=== PATIENT | female | born 1985 | race Caucasian/White ===

== ENCOUNTER → 2016-05-14 | Outpatient (CLI) | payer MEDICARE ==
[~2016-05-14] MED LIST: ASPI81CH PO; CETI10TA PO
[2016-05-14 16:45] LABS: BASO % 0.2 % (0.0-1.0); EOS # 0.1 K/mm3 (0.0-0.50); EOS % 1.4 % (0.0-3.0); LARGE UNSTAINED CELL # 0.3 K/mm3 (0.0-0.4); LARGE UNSTAINED CELL % 3.2 % (0.0-4.0); LYMPH # 2.1 K/mm3 (1.5-6.5); LYMPH % 21.4 % (24.0-44.0); MEAN CORPUSCULAR HEMOGLOBIN 23.4 pg (27.0-33.0); MEAN CORPUSCULAR HGB CONC 31.6 g/dl (32.0-36.5); MEAN CORPUSCULAR VOLUME 73.9 fl (80.0-96.0); MONO # 0.5 K/mm3 (0.0-0.8); MONO % 4.8 % (0.0-5.0); NEUTROPHILS # 6.7 K/mm3 (1.8-7.7); NEUTROPHILS % 69.1 % (36.0-66.0); PLATELET COUNT, AUTOMATED 421 k/mm3 (150-450); WHITE BLOOD COUNT 9.7 K/mm3 (4.0-10.0)
[2016-05-15 14:26] LABS: HIV SCRN NEGATIVE (NEGATIVE); HIV SCRN1 NEGATIVE (NEGATIVE)
[2016-05-15 14:27] LABS: CONTROL LINE INT CTR LINE PRESENT
[2016-05-16 11:12] LABS: HBsAg Prenatal NEGATIVE (NEGATIVE)
== END ==
LOC: M WUC 14:15
PROVIDERS: ATTEND Advanced Practice Midwife
DX: Z34.81 Encounter for supervision of other normal pregnancy, first trimester (principal)

== ENCOUNTER → 2016-05-24 | Outpatient (CLI) | payer MEDICARE ==
--- NOTE | 2016-05-25 04:36 | REP ---
Clinical: Anatomical evaluation. Comparison: None . Findings: Examination demonstrates a single live intrauterine in transverse (head to maternal right side) presentation. motion is identified by technologist. Placenta is noted anteriorly and grade zero without evidence for placenta previa or abruption. Amniotic fluid volume is normal. Cervix measures 4.5 cm in length and appears closed. No evidence for nuchal cord. Gestational age by current measurements 20 weeks 4 days with GENESIS 10/07/2016 . FHR equals 141 beats per minute. BPD 4.7 cm 20 weeks 1 day HC 18.5 cm 20 weeks 6 days AC 15.5 cm 20 weeks 4 days FL 3.3 cm 20 weeks 1 day HL 3.3 cm 21 weeks 1 day HC/AC ratio 1.19 Estimated weight 356 grams ( 42nd percentile). Anatomical assessment demonstrates normal structures including cranium, choroid plexus, cavum, cerebellum/posterior fossa, facial profile , lungs, diaphragm, stomach, cord insertion/three-vessel cord, kidneys/bladder, spine, and extremities. Impression: 1. Single live intrauterine in transverse lie. 2. Limited evaluation of the facial features and heart/ventricular outflow tracts may warrant reevaluation. Signed by Arthur Santana MD 05/25/2016 04:27 A
== END ==
LOC: M RAD 10:38
PROVIDERS: ATTEND Specialist
DX: Z36 Encounter for antenatal screening of mother (principal); Z3A.20 20 weeks gestation of pregnancy

== ENCOUNTER → 2016-07-04 | Outpatient (CLI) | payer MEDICARE ==
--- NOTE | 2016-07-05 05:38 | REP ---
Clinical: Anatomical evaluation. Comparison: 05/24/2016 . Findings: Examination demonstrates a single live intrauterine in transverse (head to the maternal right side) presentation. motion is identified by technologist. Placenta is noted anteriorly and grade zero without evidence for placenta previa or abruption. Amniotic fluid volume is normal. Cervix measures 4.8 cm in length and appears closed. No evidence for nuchal cord. Gestational age by LMP 26 weeks 3 days with GENESIS 10/07/2016 . Gestational age by current measurements 25 weeks 6 days with GENESIS 10/11/2016 . FHR equals 141 beats per minute. Estimated weight 889 grams ( 84th percentile). Anatomical assessment demonstrates normal structures including cranium, choroid plexus, cavum, cerebellum/posterior fossa, facial features, lungs, four-chamber heart/ventricular outflow tracts, diaphragm, stomach, cord insertion/three-vessel cord, kidneys/bladder, spine, and extremities. Impression: Single live intrauterine in transverse lie demonstrating appropriate interval growth. Anatomical assessment is complete and normal. Signed by Arthur Santana MD 07/05/2016 05:29 A
== END ==
LOC: M RAD 11:41
PROVIDERS: ATTEND Specialist
DX: Z36 Encounter for antenatal screening of mother (principal)

== ENCOUNTER → 2016-07-31 | Outpatient (CLI) | payer MEDICARE ==
[2016-07-31 17:18] LABS: MEAN CORPUSCULAR HEMOGLOBIN 26.3 pg (27.0-33.0); MEAN CORPUSCULAR VOLUME 82.1 fl (80.0-96.0); RED CELL DISTRIBUTION WIDTH 18.5 % (11.5-14.5); WHITE BLOOD COUNT 9.9 K/mm3 (4.0-10.0)
== END ==
LOC: M SMT 15:00
PROVIDERS: ATTEND Advanced Practice Midwife
DX: Z34.82 Encounter for supervision of other normal pregnancy, second trimester (principal)

== ENCOUNTER → 2016-08-08 | Outpatient (CLI) | payer MEDICARE ==
--- NOTE | 2016-08-08 22:02 | REP ---
Clinical: Few being . Comparison: 07/04/2016 . Findings: Examination demonstrates a single live intrauterine in transverse (head to maternal right) presentation. motion is identified by technologist. Placenta is noted anteriorly and grade I I without evidence for placenta previa or abruption. Amniotic fluid volume is normal. Cervix measures 3.9 cm in length and appears closed. Nuchal cord cannot be excluded. Gestational age by LMP 31 weeks 3 days with GENESIS 10/07/2016 . Gestational age by current measurements 30 weeks 5 days with GENESIS 10/12/2016 . FHR equals 135 beats per minute. Estimated weight 1635 grams ( 30th percentile). Amniotic fluid index equals 13.3 cm (8.7 - 24.0). Biophysical profile score equals 8/8. Umbilical cord (mid cord) SD ratio equals 1.96 (2.50 - 3.50) Umbilical cord ( insertion) SD ratio equals 1.96 (3.30 - 4.70) Impression: 1. Advanced gestation in transverse lie demonstrating appropriate interval growth. Nuchal cord cannot be excluded. 2. Estimated weight within normal range. 3. Amniotic fluid index and biophysical profile score normal. 4. SD ratio was decreased as described above. Signed by Arthur Santana MD 08/08/2016 09:53 P
== END ==
LOC: M RAD 16:48
PROVIDERS: ATTEND Advanced Practice Midwife
DX: O24.419 Gestational diabetes mellitus in pregnancy, unspecified control (principal); Z36 Encounter for antenatal screening of mother; Z3A.30 30 weeks gestation of pregnancy

== ENCOUNTER → 2016-08-22 | Outpatient (CLI) | payer MEDICARE, MEDICAID ==
--- NOTE | 2016-08-23 07:28 | REP ---
Clinical: well-being . Comparison: 08/08/2016 . Findings: Examination demonstrates a single live intrauterine in transverse (head towards maternal right) presentation. motion is identified by technologist. Placenta is noted anteriorly and grade I without evidence for placenta previa or abruption. Amniotic fluid volume is normal. Cervix measures 3.2 cm in length and appears closed. No evidence for nuchal cord. Gestational age by LMP 33 weeks 3 days with GENESIS 10/07/2016 . FHR equals 133 beats per minute. Biophysical profile score equals 8/8. Amniotic fluid index equals 14.3 cm. Umbilical cord SD ratio equals 2.73. Impression: Single live intrauterine in transverse lie. Biophysical profile score equals 8/8. Amniotic fluid index equals 14.3 cm. Signed by Arthur Santana MD 08/23/2016 07:20 A
== END ==
LOC: M RAD 16:42
PROVIDERS: ATTEND Advanced Practice Midwife
DX: O24.419 Gestational diabetes mellitus in pregnancy, unspecified control (principal)

== ENCOUNTER → 2016-08-30 | Outpatient (CLI) | payer MEDICARE ==
--- NOTE | 2016-08-31 08:17 | REP ---
Clinical: Gestational diabetes for growth evaluation . Comparison: 08/22/2016 . Findings: Examination demonstrates a single live intrauterine in cephalic presentation. motion is identified by technologist. Placenta is noted anteriorly and grade one without evidence for placenta previa or abruption. Amniotic fluid volume is normal. Cervix measures 3.6 cm in length and appears closed. No evidence for nuchal cord. Gestational age by LMP 34 weeks 4 day with GENESIS date 10/07/2016 . Gestational age by current measurements 34 weeks 0 days with GENESIS 10/11/2016 . FHR equals 139 beats per minute. BPD 8.2 cm 33 weeks 0 days HC 30.1 cm 33 weeks 3 days AC 30.0 cm 33 weeks 6 days FL 6.6 cm 34 weeks 0 days HL 6.1 cm 35 weeks 3 days HC/AC ratio 1.00 Estimated weight 2278 grams ( 33rd percentile). Amniotic fluid index equals 14.1 cm (8.0 - 24.9). Impression: Single live intrauterine in cephalic presentation demonstrating appropriate interval growth. Estimated weight and amniotic fluid index are normal. Signed by Arthur Santana MD 08/31/2016 08:07 A
== END ==
LOC: M RAD 11:51
PROVIDERS: ATTEND Advanced Practice Midwife
DX: Z36 Encounter for antenatal screening of mother (principal); Z3A.34 34 weeks gestation of pregnancy; O24.419 Gestational diabetes mellitus in pregnancy, unspecified control

== ENCOUNTER → 2016-09-06 | Outpatient (CLI) | payer MEDICARE, MEDICAID ==
[~2016-09-06] MED LIST changes: +ACET50TA PO; +ANUS2.5C2 TOP; +CITA20TA4 PO; +COLA100C5 PO; +DULO1CAP2 PO; +IRON65TA PO; +METH75TA PO; +MOM30SS PO; +NUPE1OIN2 TOP; +PRE-TAB3 PO; +PREG50CA PO; +SUMA50TA2 PO
--- NOTE | 2016-09-06 10:10 | REP ---
Clinical: well-being . Comparison: 08/30/2016 . Findings: Examination demonstrates a single live advanced intrauterine in cephalic presentation. motion is identified by technologist. Placenta is noted anteriorly and grade one without evidence for placenta previa or abruption. Amniotic fluid volume is normal. Cervix measures 3.6 cm in length and appears closed. Nuchal cord cannot be excluded. Gestational age by LMP 35 weeks 4 days with GENESIS 10/07/2016 . FHR equals 133 beats per minute. Amniotic fluid index equals 19.1 cm (7.8 - 24.9). Biophysical profile score equals 8/8. Impression: Single live advanced gestation in cephalic presentation. Biophysical profile score equals 8/8. REYNA normal. Nuchal cord cannot be excluded. Signed by Arthur Santana MD 09/06/2016 10:00 A
== END ==
LOC: M RAD 09:25
PROVIDERS: ATTEND Advanced Practice Midwife
DX: O24.419 Gestational diabetes mellitus in pregnancy, unspecified control (principal); Z3A.00 Weeks of gestation of pregnancy not specified

== ENCOUNTER 2016-09-13 13:32 | Outpatient (CLI) | payer MEDICARE ==
[~2016-09-13] VITALS: Ht 152.4 cm; Wt 146.0 kg
[~2016-09-13 13:32] MED LIST changes: -ACET50TA PO; -ANUS2.5C2 TOP; -CITA20TA4 PO; -COLA100C5 PO; -DULO1CAP2 PO; -IRON65TA PO; -METH75TA PO; -MOM30SS PO; -NUPE1OIN2 TOP; -PRE-TAB3 PO; -PREG50CA PO; -SUMA50TA2 PO
[2016-09-13 13:49] VITALS: BP 99/51
[2016-09-13] MEDS ORDERED: CITA20TA4 PO (14:03)
[2016-09-13] MEDS ORDERED: IRON65TA PO (14:03)
[2016-09-13] MEDS ORDERED: ACET50TA PO (14:03)
[2016-09-13] MEDS ORDERED: PRE-TAB3 PO (14:03)
[2016-09-13 16:22] VITALS: BP 97/49
[2016-11-16] MEDS ORDERED: METH75TA PO (08:06)
[2016-11-16] MEDS ORDERED: DULO1CAP2 PO (08:06)
[2016-11-16] MEDS ORDERED: PREG50CA PO (08:06)
[2016-11-16] MEDS ORDERED: SUMA50TA2 PO (08:06)
== END 2016-09-13 16:30 | disposition home or self-care (01) ==
LOC: M LDO 13:32
PROVIDERS: ATTEND Specialist
DX: O26.893 Other specified pregnancy related conditions, third trimester (principal); Z3A.36 36 weeks gestation of pregnancy; R10.9 Unspecified abdominal pain; Z88.8 Allergy status to other drugs, medicaments and biological substances

== ENCOUNTER → 2016-09-14 | Outpatient (CLI) | payer MEDICARE ==
[~2016-09-14] MED LIST changes: +ACET50TA PO; +ANUS2.5C2 TOP; +CITA20TA4 PO; +COLA100C5 PO; +DULO1CAP2 PO; +IRON65TA PO; +METH75TA PO; +MOM30SS PO; +NUPE1OIN2 TOP; +PRE-TAB3 PO; +PREG50CA PO; +SUMA50TA2 PO
--- NOTE | 2016-09-14 16:03 | REP ---
Obstetric ultrasound for biophysical profile: Based on the first ultrasound during this gestation the gestational age is 36 weeks 5 days with an GENESIS of 10/07/2016. The heart rate is 144 beats per minute. Subjectively the amniotic fluid volume is normal. The amniotic fluid index is 14.7 (7.6 - 24.6). biophysical profile: Breathing 2 Movement 2 Tone 2 Amniotic fluid volume 2 Total 10/16 Umbilical artery Doppler assessment: SD ratio 2.0. Resistive index 0.55. Diastolic flow velocity 23.7 cm/sec. These values are in their normal ranges. The placenta is anterior. There is no placenta previa or abruptio. The placenta demonstrates grade 2 maturity. Signed by Sarthak Tapia MD 09/14/2016 03:53 P
== END ==
LOC: M RAD 14:45
PROVIDERS: ATTEND Advanced Practice Midwife
DX: O24.419 Gestational diabetes mellitus in pregnancy, unspecified control (principal); Z3A.36 36 weeks gestation of pregnancy

== ENCOUNTER → 2016-09-19 | Outpatient (CLI) | payer MEDICARE ==
--- NOTE | 2016-09-20 04:47 | REP ---
Clinical: Gestational diabetes for well being . Comparison: 09/14/2016 . Findings: Examination demonstrates a single live intrauterine in transverse (head to maternal right) presentation. motion is identified by technologist. Placenta is noted anteriorly and grade II without evidence for placenta previa or abruption. Amniotic fluid volume is normal. Cervix appears closed. No evidence for nuchal cord. Gestational age by LMP 37 weeks 6 days with GENESIS 10/04/2016. FHR equals 126 beats per minute. BPP equals 8/8. Amniotic fluid index equals 14.9 cm (7.3 - 24.0). Umbilical cord SD ratio equals 2.08 (1.60 - 2.60). Impression: Single live intrauterine in transverse lie. Biophysical profile score equals 8/8. Amniotic fluid index normal. Signed by Arthur Santana MD 09/20/2016 04:37 A
== END ==
LOC: M RAD 16:36
PROVIDERS: ATTEND Advanced Practice Midwife
DX: O24.419 Gestational diabetes mellitus in pregnancy, unspecified control (principal); Z3A.36 36 weeks gestation of pregnancy

== ENCOUNTER → 2016-09-26 | Outpatient (REF) | payer MEDICARE | LOC: M LAB REF 17:11 | PROVIDERS: ATTEND Specialist | DX: O24.419 Gestational diabetes mellitus in pregnancy, unspecified control (principal); Z3A.00 Weeks of gestation of pregnancy not specified ==

== ENCOUNTER 2016-09-30 19:30 | Inpatient (IN) | payer MEDICARE ==
[~2016-09-30] VITALS: Ht 152.4 cm; Wt 139.0 kg
[~2016-09-30 19:30] MED LIST changes: -ANUS2.5C2 TOP; -COLA100C5 PO; -DULO1CAP2 PO; -METH75TA PO; -MOM30SS PO; -NUPE1OIN2 TOP; -PREG50CA PO; -SUMA50TA2 PO
[2016-09-30 20:39] LABS: MEAN CORPUSCULAR HEMOGLOBIN 27.5 pg (27.0-33.0); MEAN CORPUSCULAR HGB CONC 32.6 g/dl (32.0-36.5); MEAN CORPUSCULAR VOLUME 84.5 fl (80.0-96.0); RED CELL DISTRIBUTION WIDTH 15.1 % (11.5-14.5); WHITE BLOOD COUNT 9.6 K/mm3 (4.0-10.0)
--- NOTE | 2016-09-30 21:18 | HPE ---
DATE OF ADMISSION: 09/30/2016 HISTORY: A 30-year-old 3, para 1-0-1-1 female at 39 and 0/7 weeks gestation by 20 week ultrasound, estimated date of confinement (EDC) of 10/07/2016, presents for labor induction. The patient has gestational diabetes controlled with metformin. She denies contractions or vaginal bleeding. COURSE: The patient initiated care at 20 weeks gestation on 05/17/2016. Her blood pressure at that time was 118/76. Weight was 329 pounds. Due to history of gastric bypass, she did not complete glucose tolerance test. She underwent glucose testing for a week and was subsequently diagnosed as a gestational diabetic. She was started on metformin. She had adequate testing as well as growth ultrasound. MEDICAL HISTORY: 1. Seizure disorder. No current medications. 2. Anxiety, depression. 3. Obesity. SURGICAL HISTORY: Gastric bypass. ALLERGIES: None. SOCIAL HISTORY: The patient is . She denies cigarettes, alcohol or drug use. FAMILY HISTORY: Noncontributory. PHYSICAL EXAMINATION: VITAL SIGNS: Blood pressure 134/76, weight 346 pounds. GENERAL: She is in no apparent distress. HEAD/NECK: Normal. LUNGS: Clear. HEART: Regular rate and rhythm. ABDOMEN: Nontender. Gravid. heart tones category one. Contractions irregular. EXTREMITIES: Nontender. LABORATORY DATA: Blood type A positive. Rubella immune. RPR nonreactive. Hepatitis B and C negative. HIV negative. ASSESSMENT: A 30-year-old 3, para 1-0-1-1 female at 39 and 0/7 weeks gestation by 20 week ultrasound, presents for labor induction. The patient has gestational diabetes controlled with oral agents. The patient is admitted on 09/30/2016. Risks of induction were discussed.
[2016-09-30] MEDS: miSOPROStol 50 MCG 1/2 TAB (S0191) PO SCH (21:39)
[2016-10-01] VITALS (11 sets, daily range): BP systolic 79–139; BP diastolic 45–79
[2016-10-01] MEDS: miSOPROStol 50 MCG 1/2 TAB (S0191) PO SCH ×4 (06:54→20:00)
[2016-10-01] MEDS ORDERED: CLINDAMYCIN 900 MG/50 ML PREMIX BAG As Ordered ONE (12:59)
[2016-10-01] MEDS ORDERED: BUTORPHANOL 2 MG/ML INJ (J0595) IV ONE ×2 (13:00→21:30)
[2016-10-01] MEDS ORDERED: PROMETHAZINE INJ 25 MG/ML VIAL (J2550) IV ONE ×2 (13:00→21:30)
[2016-10-01] MEDS: CLINDAMYCIN 900 MG in APPROPRIATE DILUENT 1 EA IV SCH ×2 (13:22→20:59)
[2016-10-01] MEDS ORDERED: OXYTOCIN 30 UNITS IN 0.9% NaCl 500ML IV BAG (J2590) As Ordered ONE (20:32)
[2016-10-01] MEDS ORDERED: LR 1,000 ML IV SCH (20:33)
[2016-10-01] MEDS ORDERED: OXYTOCIN DRIP 30 UNITS in APPROPRIATE DILUENT 1 EA IV SCH (20:45)
[2016-10-02] MEDS ORDERED: PROMETHAZINE INJ 25 MG/ML VIAL (J2550) IV ONE (00:30)
[2016-10-02] MEDS ORDERED: BUTORPHANOL 2 MG/ML INJ (J0595) IV ONE (00:30)
[2016-10-02] MEDS: miSOPROStol 50 MCG 1/2 TAB (S0191) PO SCH ×2 (00:51)
[2016-10-02] MEDS ORDERED: miSOPROStol 200 MCG TAB (S0191) As Ordered ONE (02:04)
[2016-10-02] MEDS: METHYLERGONOVINE MALEATE 0.2 MG TAB PO SCH ×5 (02:30→20:50)
[2016-10-02 02:36] LABS: CORD GAS ABE V -5.5; CORD GAS HCO3 V 22.4 MEQ/L; CORD GAS O2 SAT V 50.2 %; CORD GAS PCO2 V 53.3 mmHg; CORD GAS PH V 7.241 UNITS; CORD GAS PO2 V 25.9 mmHg; CORD GAS SBC V 18.9 MEQ/L
[2016-10-02] MEDS ORDERED: DOCUSATE SODIUM 100 MG CAP PO PRN (03:00)
[2016-10-02] MEDS ORDERED: miSOPROStol 200 MCG TAB (S0191) PR ONE (03:00)
[2016-10-02] MEDS ORDERED: LIDOCAINE 1% MDV INJ 50 ML VIAL INFIL ONE (03:00)
[2016-10-02] MEDS ORDERED: DIBUCAINE 1% OINTMENT 30GM TOP PRN (03:00)
[2016-10-02] MEDS ORDERED: MOM 30ML SUSPENSION UDC PO PRN (03:00)
[2016-10-02] MEDS ORDERED: METHYLERGONOVINE MALEATE 0.2 MG/ML VIAL (J2210) IM ONE (03:00)
[2016-10-02] MEDS ORDERED: ANUSOL HC CREAM 30GM TOP PRN (03:00)
[2016-10-02] MEDS ORDERED: MEASLES,MUMPS,RUBELLA VACCINE INJ (MMR-II) (90707) SC SCH (03:00)
[2016-10-02] MEDS ORDERED: RHOGAM 300 MCG (1500 IU) INJ (J2790) IM SCH (03:00)
[2016-10-02 05:38] VITALS: BP 100/49
[2016-10-02] MEDS: CitaloPRAM (CeleXA) 20 MG TAB PO SCH (09:07)
[2016-10-02] MEDS: PRENATAL VITAMINS CHEWABLE TABLET PO SCH (09:09)
--- NOTE | 2016-10-02 16:17 | DN ---
DATE: 10/02/2016 Fully dilated with urge to push 0145 hours, viable female delivered right occiput anterior (MARIAT ) at 0155 hours. Spontaneous respirations with stimulation. Transitioned on maternal abdomen times 1 minute, then cord doubly clamped and cut. to warmer for further evaluation. scores 8 and 8. Cord gases obtained. The venous results 7.241. Placenta Lawson intact with three-vessel cord and trailing membranes at 0210 hours. Fundus firmed with massage and intravenous (IV) Pitocin bolus but brisk bleeding continued. Misoprostol 1000 mcg per rectum (WA) given. Perineum inspected, bleeding noted to be persisting. Methergine 0.2 mg intramuscularly (IM) given with good effect. Large left labial laceration extending into a second-degree left sulcus laceration was noted. Infiltrated with lidocaine and repaired with #3-0 Vicryl Rapide with good hemostasis achieved. Estimated blood loss 600 mL. weight 2820 grams, 6 pounds 4 ounces. name is Isabel. Sponge, sharp and instrument count correct.
[2016-10-02 17:45] VITALS: BP 111/53
[2016-10-02] MEDS: ACETAMINOPHEN 500 MG TAB PO PRN (18:38)
[2016-10-03] MEDS: METHYLERGONOVINE MALEATE 0.2 MG TAB PO SCH (03:00)
[2016-10-03] MEDS: ACETAMINOPHEN 500 MG TAB PO PRN ×2 (03:09→15:07)
[2016-10-03] MEDS ORDERED: METHYLERGONOVINE MALEATE 0.2 MG TAB PO PRN (03:15)
[2016-10-03 06:00] VITALS: BP 99/56
[2016-10-03] MEDS: CitaloPRAM (CeleXA) 20 MG TAB PO SCH (08:06)
[2016-10-03] MEDS: PRENATAL VITAMINS CHEWABLE TABLET PO SCH (08:06)
[2016-10-03 18:31] VITALS: BP 120/59
[2016-10-04 06:17] VITALS: BP 129/62
[2016-10-04] MEDS: PRENATAL VITAMINS CHEWABLE TABLET PO SCH (08:56)
[2016-10-04] MEDS: CitaloPRAM (CeleXA) 20 MG TAB PO SCH (09:01)
[2016-10-04] MEDS ORDERED: NUPE1OIN2 TOP (09:57)
[2016-10-04] MEDS ORDERED: ANUS2.5C2 TOP (09:57)
[2016-10-04] MEDS ORDERED: COLA100C5 PO (09:57)
[2016-10-04] MEDS ORDERED: MOM30SS PO (09:57)
[2016-11-16] MEDS ORDERED: METH75TA PO (08:06)
[2016-11-16] MEDS ORDERED: DULO1CAP2 PO (08:06)
[2016-11-16] MEDS ORDERED: PREG50CA PO (08:06)
[2016-11-16] MEDS ORDERED: SUMA50TA2 PO (08:06)
== END 2016-10-04 16:50 | disposition home or self-care (01) | DRG 775 ==
LOC: M LDI 19:30 → M OBS 10-02 04:14
PROVIDERS: ADMIT Specialist; ATTEND Specialist
PROC: 3E0DXGC Introduction of Other Therapeutic Substance into Mouth and Pharynx, External Approach (ICD-10-PCS; 2016-09-30)
PROC: 10E0XZZ Delivery of Products of Conception, External Approach (ICD-10-PCS; principal; 2016-10-02)
PROC: 0KQM0ZZ Repair Perineum Muscle, Open Approach (ICD-10-PCS; 2016-10-02)
DX: O24.425 Gestational diabetes mellitus in childbirth, controlled by oral hypoglycemic drugs (principal); Z68.43 Body mass index [BMI] 50.0-59.9, adult; Z37.0 Single live birth; Z3A.39 39 weeks gestation of pregnancy; Z79.84 Long term (current) use of oral hypoglycemic drugs; E66.9 Obesity, unspecified; O70.1 Second degree perineal laceration during delivery; O99.214 Obesity complicating childbirth; O99.844 Bariatric surgery status complicating childbirth

== ENCOUNTER → 2017-05-18 | Outpatient (REF) | payer MEDICARE ==
[2017-05-18 15:55] LABS: APPEARANCE, URINE HAZY (CLEAR); BACTERIA, URINE AUTO 1+ (NEGATIVE); BILIRUBIN, URINE AUTO NEGATIVE (NEGATIVE); BLOOD, URINE BLOOD NEGATIVE (NEGATIVE); COLOR, URINE YELLOW (YELLOW); GLUCOSE, URINE (UA) AUTO NEGATIVE (NEGATIVE); KETONE, URINE AUTO NEGATIVE (NEGATIVE); LEUKOCYTE ESTERASE, URINE AUTO 3+ (NEGATIVE); MUCUS, URINE SMALL (NEGATIVE); NITRITE, URINE AUTO NEGATIVE (NEGATIVE); PROTEIN, URINE AUTO NEGATIVE (NEGATIVE); RBC, URINE AUTO 4 /HPF (0-3); SPECIFIC GRAVITY URINE AUTO 1.011 (1.002-1.035); SQUAMOUS EPITHELIAL CELL UR AU 3 /HPF (0-6); UROBILINOGEN, URINE AUTO 0.2 mg/dL (0.0-2.0); WBC, URINE AUTO 10 /HPF (0-3)
== END ==
LOC: M LAB REF 15:23
DX: N39.0 Urinary tract infection, site not specified (principal)
CPT/HCPCS: 81001

== ENCOUNTER → 2017-07-23 | Outpatient (CLI) | payer MEDICARE | LOC: M RAD 14:05 | DX: N85.2 Hypertrophy of uterus (principal); Z3A.10 10 weeks gestation of pregnancy | CPT/HCPCS: 76811 ==

== ENCOUNTER → 2017-09-26 | Outpatient (CLI) | payer MEDICARE | LOC: M RAD 11:56 | DX: Z34.82 Encounter for supervision of other normal pregnancy, second trimester (principal) | CPT/HCPCS: 76816 ==

== ENCOUNTER 2017-11-20 19:08 | Outpatient (CLI) | payer MEDICARE ==
[2017-11-20 20:24] LABS: BASO % 0.2 % (0.0-1.0); EOS # 0.1 10^3/uL (0.0-0.50); EOS % 1.3 % (0.0-3.0); HEMATOCRIT 30.1 % (36.0-47.0); HEMOGLOBIN 9.6 g/dl (12.0-15.5); IMMATURE GRANULOCYTE % 0.4 % (0-3.0); LYMPH # 2.7 10^3/uL (1.5-6.5); MEAN CORPUSCULAR HEMOGLOBIN 25.9 pg (27.0-33.0); MEAN CORPUSCULAR HGB CONC 31.9 g/dl (32.0-36.5); MEAN CORPUSCULAR VOLUME 81.4 fl (80.0-96.0); MONO # 0.5 10^3/uL (0.0-0.8); MONO % 4.9 % (0.0-5.0); NEUTROPHILS # 6.7 10^3/uL (1.8-7.7); NEUTROPHILS % 66.2 % (36.0-66.0); PLATELET COUNT, AUTOMATED 370 10^3/uL (150-450); RED CELL DISTRIBUTION WIDTH 14.6 % (11.5-14.5); WHITE BLOOD COUNT 10.1 10^3/uL (4.0-10.0)
[2017-11-22 12:03] LABS: HBsAg Prenatal NEGATIVE (NEGATIVE); HIV 1&2 SCREEN CENTAUR NEGATIVE (NEGATIVE); RUBELLA IgG QUALITATIVE IMMUNE (IMMUNE)
[2017-11-22 12:03] LABS: HEPATITIS C VIRUS ABY INDEX 0.1 INDEX (<0.8)
== END 2017-11-20 20:35 | disposition home or self-care (01) ==
LOC: M LDO 19:08
DX: Z11.59 Encounter for screening for other viral diseases (principal); R10.30 Lower abdominal pain, unspecified; M54.5 Low back pain; Z3A.36 36 weeks gestation of pregnancy
CPT/HCPCS: 59025

== ENCOUNTER → 2017-11-27 | Outpatient (CLI) | payer MEDICARE ==
[2017-11-27 14:53] LABS: FOLATE 18.5 NG/ML; IRON (FE) 31 UG/DL (50-170); PERCENT SATURATION 4.8 % (13.2-45.0); TOTAL IRON BINDING CAPACITY 650 UG/DL (250-450)
[2017-11-27 15:53] LABS: ESTIMATED AVERAGE GLUCOSE 114 MG/DL (60-110); HEMOGLOBIN A1c 5.6 %
[2017-11-27 16:15] LABS: CHLAMYDIA DNA AMPLIFICATION NEGATIVE (NEGATIVE); GC DNA AMPLIFICATION NEGATIVE (NEGATIVE)
== END ==
LOC: M SMT 11:07
DX: O99.613 Diseases of the digestive system complicating pregnancy, third trimester (principal); K90.9 Intestinal malabsorption, unspecified
CPT/HCPCS: 82746

== ENCOUNTER → 2017-12-04 | Outpatient (CLI) | payer MEDICARE, MEDICAID | LOC: M RAD 08:50 | DX: O36.63X3 Maternal care for excessive fetal growth, third trimester, fetus 3 (principal); Z3A.38 38 weeks gestation of pregnancy | CPT/HCPCS: 76816 ==

== ENCOUNTER 2017-12-06 08:59 | Emergency (ER) | payer MEDICARE, MEDICAID | END 2017-12-06 11:14 | disposition home or self-care (01) | LOC: M ED 08:59 | DX: O99.89 Other specified diseases and conditions complicating pregnancy, childbirth and the puerperium (principal); R21 Rash and other nonspecific skin eruption; T78.40XA Allergy, unspecified, initial encounter; Y92.89 Other specified places as the place of occurrence of the external cause; Z3A.39 39 weeks gestation of pregnancy; Z88.8 Allergy status to other drugs, medicaments and biological substances; Z88.1 Allergy status to other antibiotic agents ==

== ENCOUNTER → 2018-11-05 | Outpatient (REF) | payer MEDICARE, MEDICAID ==
[~2018-11-05] MED LIST changes: -ACET50TA PO; +ANUS2.5C2 TOP; +BENA25CA4 PO; +CITA10TA6 PO; -CITA20TA4 PO; +CITA20TA6 PO; +COLA100C5 PO; +DULO1CAP5 PO; +MAPA500T2 PO; +METH750T2 PO; +MOM30SS PO; +NUPE1OIN2 TOP; +PREG50CA PO; +PREN1TAB15 PO; +SUMA50TA2 PO
[2018-11-05 19:28] LABS: CHLAMYDIA DNA AMPLIFICATION POSITIVE (NEGATIVE); GC DNA AMPLIFICATION NEGATIVE (NEGATIVE)
[2018-11-07 14:28] LABS: HPV HYBRID CAPTURE II Negative (Negative)
== END ==
LOC: M LAB REF 16:55
PROVIDERS: ATTEND Specialist
DX: Z12.4 Encounter for screening for malignant neoplasm of cervix (principal)
CPT/HCPCS: 87491; 87591; 87624; G0123

== ENCOUNTER 2019-12-20 18:30 | Emergency (ER) | payer MEDICAID, MEDICARE ==
[~2019-12-20] VITALS: Ht 152.4 cm; Wt 139.0 kg
[2019-12-20 18:31] VITALS: BP 137/69
[2019-12-20] MEDS ORDERED: SUMA50TA2 (18:39)
[2019-12-20] MEDS ORDERED: METH750T2 (18:39)
[2019-12-20] MEDS ORDERED: DULO1CAP6 (18:39)
[2019-12-20] MEDS ORDERED: GABA600T4 (18:39)
[2019-12-20] MEDS ORDERED: XULA1DIS (18:39)
[2019-12-20] MEDS ORDERED: GABAPENTIN 300 MG CAP PO ONE (19:15)
[2019-12-20] MEDS ORDERED: GABA600T4 PO (19:15)
== END 2019-12-20 19:28 | disposition home or self-care (01) ==
LOC: M ED 18:30
DX: Z76.0 Encounter for issue of repeat prescription (principal); G89.29 Other chronic pain; Z98.84 Bariatric surgery status; F17.200 Nicotine dependence, unspecified, uncomplicated; Z79.899 Other long term (current) drug therapy; Z88.6 Allergy status to analgesic agent; Z88.1 Allergy status to other antibiotic agents

== ENCOUNTER 2020-06-13 08:19 | Inpatient (IN) | payer MEDICARE ==
[~2020-06-13] VITALS: Ht 152.4 cm; Wt 127.6 kg
[~2020-06-13 08:19] MED LIST changes: +DULO1CAP6; +GABA600T4; +GABA600T4 PO; +METH-1165; +METH-1165 PO; -METH750T2 PO; +SUMA50TA2; +XULA1DIS
[2020-06-13 09:32] LABS: HEMATOCRIT 32.3 % (36.0-47.0); HEMOGLOBIN 9.5 g/dl (12.0-15.5); MEAN CORPUSCULAR HEMOGLOBIN 20.3 pg (27.0-33.0); MEAN CORPUSCULAR HGB CONC 29.4 g/dl (32.0-36.5); MEAN CORPUSCULAR VOLUME 68.9 fl (80.0-96.0); PLATELET COUNT, AUTOMATED 538 10^3/uL (150-450); RED BLOOD COUNT 4.69 10^6/uL (4.00-5.40); WHITE BLOOD COUNT 9.5 10^3/uL (4.0-10.0)
[2020-06-13 09:43] LABS: HCG, SERUM QUALITATIVE NEGATIVE (NEGATIVE)
[2020-06-13 09:55] LABS: ACETAMINOPHEN LEVEL < 2.0 UG/ML (10.0-30.0); ALBUMIN 3.6 GM/DL (3.2-5.2); ALT/SGPT 17 U/L (12-78); BILIRUBIN,DIRECT 0.1 MG/DL (0.0-0.2); BILIRUBIN,TOTAL 0.5 MG/DL (0.2-1.0); BLOOD UREA NITROGEN 5 MG/DL (7-18); CALCIUM LEVEL 9.1 MG/DL (8.5-10.1); CARBON DIOXIDE LEVEL 26 MEQ/L (21-32); CHLORIDE LEVEL 106 MEQ/L (98-107); CREATININE FOR GFR 0.58 MG/DL (0.55-1.30); ETHYL ALCOHOL (ETHANOL) < 0.003 % (0.000-0.010); GLOMERULAR FILTRATION RATE > 60.0 (>60); GLUCOSE, FASTING 90 MG/DL (70-100); POTASSIUM SERUM 3.4 MEQ/L (3.5-5.1); SALICYLATE LEVEL < 1.7 MG/DL (5.0-30.0); SODIUM LEVEL 140 MEQ/L (136-145); TOTAL PROTEIN 7.4 GM/DL (6.4-8.2)
[2020-06-13 09:56] LABS: AMPHETAMINES LEVEL URINE NEGATIVE (NEGATIVE); BARBITURATES URINE NEGATIVE (NEGATIVE); BENZODIAZEPINES URINE NEGATIVE (NEGATIVE); CANNABINOIDS URINE POSITIVE (NEGATIVE); COCAINE METABOLITE URINE NEGATIVE (NEGATIVE); METHADONE URINE NEGATIVE (NEGATIVE); OPIATES URINE NEGATIVE (NEGATIVE); PHENCYCLIDINE URINE NEGATIVE (NEGATIVE)
[2020-06-13] MEDS ORDERED: ACETAMINOPHEN TAB 650MG DOSE (2X325MG) PO PRN (14:05)
[2020-06-13] MEDS ORDERED: traZODone 50 MG TAB PO PRN (14:05)
[2020-06-13] MEDS ORDERED: MAALOX 30 ML SUSP *UDC PO PRN (14:05)
[2020-06-13] MEDS ORDERED: MOM 30ML SUSPENSION UDC PO PRN (14:05)
[2020-06-13 14:45] LABS: RSV AMPLIFICATION NEGATIVE (NEGATIVE)
[2020-06-13 17:54] VITALS: BP 162/80
[2020-06-14 07:11] VITALS: BP 138/86
[2020-06-14] MEDS ORDERED: INFLUENZA QUADRIVALENT PF VACCINE 0.5ML SYRINGE IM ONE (09:00)
[2020-06-14] MEDS: hydrOXYzine 50 MG TAB PO SCH ×3 (12:00→23:34)
[2020-06-14] MEDS: NICOTINE 14 MG/24 HR TRANSDERMAL TD SCH (15:22)
[2020-06-14] MEDS: buPROPion **SR TABLET** (ZYBAN) 150MG PO SCH (15:22)
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
[2020-06-14 18:13] VITALS: BP 146/66
--- NOTE | 2020-06-14 23:47 | HPEPDOC ---
[facility] Medical History & Physical Date of Admission Jun 13, 2020 Date of Service: Jun 14, 2020 History and Physical CHIEF COMPLAINT: Suicidal Ideation HISTORY OF PRESENT ILLNESS: Mrs. Fernandez is a 34 year old female with seizure disorder and fibromyalgia who is in the inpatient mental health unit for suicid al ideation. She tells me that for the past 5 months, she has been out of her medications. She does not have a primary since her PCP no longer accepts her insurance. She was discharged from [facility] for multiple missed appointments. She tells me for fibromyalgia, she was on Gabapentin and Methocarbamol, but has managed off of these medications. She tells me that she also has seizure disorder of which she is on Gabapentin. She is in the process of obtaining a neurologist in [facility] for these medications. Otherwise, today, she reports improvement of mood. Denies chest pain or dyspnea. She has chronic upper back pain of which she used CBD for pain. PAST MEDICAL HISTORY: 1. Fibromyalgia 2. Seizure disorder 3. Carpal tunnel syndrome bilaterally PAST SURGICAL HISTORY: 1. Gastric bypass SOCIAL HISTORY: Tobacco use: Denies cigarette use, but reports vaping ETOH: Denies alcohol use Illicit drug use: Uses marijuana for pain FAMILY HISTORY: Father: Bipolar, Hypertension Mother: Bipolar, carpal tunnel ALLERGIES: Please see below. REVIEW OF SYSTEMS: CONSTITUTIONAL: Denies any fever/chills HEENT: Denies sore throat CARDIOVASCULAR: Denies chest pain RESPIRATORY: Denies dyspnea GASTROINTESTINAL: Denies abdominal pain GENITOURINARY: Denies dysuria SKIN: Denies rashes MUSCULOSKELETAL: Reports chronic upper back pain NEUROLOGICAL: Denies paresthesias PSYCHIATRIC: She does have anxiety and depression, but tells me it is improved today HOME MEDICATIONS: Please see below. PHYSICAL EXAMINATION: VITAL SIGNS: Temperature 97.3, pulse 84, respiratory rate 18, blood pressure 138/86, pulse oximetry 99% on room air. GENERAL: Comfortable, in no apparent distress HEENT: Head normocephalic, atraumatic NECK: Supple CARDIOVASCULAR EXAMINATION: Regular rate and rhythm RESPIRATORY EXAMINATION: Lungs clear to auscultation bilaterally ABDOMINAL EXAMINATION: Soft, non-tender, normal bowel sounds EXTREMITIES: No pitting edema bilaterally SKIN: Warm and dry NEUROLOGICAL EXAMINATION: CN 3-12 grossly intact PSYCHIATRIC EXAMINATION: Normal mood and affect LABORATORY DATA: See below. ASSESSMENT and PLAN: 1. Suicidal ideation -Being managed in the inpatient mental health unit 2. Fibromyalgia -Currently controlled -Patient declines any further pain control at this time 3. Seizure disorder -Patient is working on obtaining outpatient neurologist -Hesitant on starting gabapentin. If patient abruptly stops, can cause gabapentin withdrawal. Patient will need to find outpatient neurologist to consistent prescribe her medications. In the mean time, will touch base with [facility] tomorrow Disposition: Thank you for consulting us. Will sign off at this time. If there is any further question or concerns, please do not hesitate to contact us. Vital Signs Vital Signs Date Time Temp Pulse Resp B/P (MAP) Pulse Ox O2 Delivery O2 Flow Rate FiO2 06/14/20 18:13 98.0 79 16 146/66 (92) 06/14/20 07:11 99 Room Air Home Medications No Active Prescriptions or Reported Meds Allergies Coded Allergies: NSAIDS (Non-Steroidal Anti-Inflamma (Verified Allergy, Severe, anaphylaxis, 12/20/19) cephalexin (Verified Allergy, Severe, anaphalaxis, 12/20/19) A-FIB/CHADSVASC A-FIB History Current/History of A-Fib/PAF?: No Age/Risk Factor Scoring CHADSVASC: CHADSVASC Response (Comments) Value Age Risk Factor Age < 65 years old 0 Gender Risk Factor Female 1 Hx of CHF No 0 Hx of HTN No 0 Hx of Stroke/TIA/or VTE No 0 Hx of Diabetes No 0 Hx of Vascular Disease No 0 Total 1 MAYMARIUSZ DO Jun 14, 2020 23:47
[2020-06-15] MEDS: hydrOXYzine 50 MG TAB PO SCH ×2 (05:57→12:12)
[2020-06-15 06:00] VITALS: BP 139/76
[2020-06-15] MEDS: NICOTINE 14 MG/24 HR TRANSDERMAL TD SCH (08:37)
[2020-06-15] MEDS: buPROPion **SR TABLET** (ZYBAN) 150MG PO SCH (08:37)
[2020-06-15 09:46] LABS: CHOLESTEROL RISK RATIO 4.4 (<5)
[2020-06-15] MEDS ORDERED: BUPR15TASR PO (14:48)
[2020-06-15] MEDS ORDERED: NICO14PA TD (14:48)
--- NOTE | 2020-06-15 14:56 | MHIPNPDOC ---
[facility] Progress Note Progress Note DATE OF SERVICE: 06/15/20 HISTORY: Patient is a 34 -year-old , Disabled, Domiciled, , female, who reports that she has been very depressed and anxious with suicidal ideation after a breakup with her boyfriend two months ago. 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 she states that initially the relationship was a platonic relationship that developed into a genuine boyfriend/girlfriend relationship at [place]. She reports that he was cheating on her and she then terminated the relationship and she was receiving conflicting messages from friends and family to renew the relationship and stay away from him, PER ED REPORT: Patient reporting an increase in depressive sx over the last two months, including SI presently. "My anxiety and depression are at an all-time high right now." Patient reports relationship demise two months ago. She reports that this has been very difficult, although her ex is very narcissistic and there were significant relationship issues as a result. She says that she has been steadily feeling more depressed an anxious since the breakup, including serious thoughts of suicide. She states that she has been without any outpatient treatment since 2012 & has never been hospitalized, although was diagnosed with Bipolar D/O in the past. On several occasions she referenced being "manic" at times during the last month, although her description of her behavior & sx are more suggestive of depression & anxiety. She reports that she has never felt as strongly about ending her life as she has over the last couple of days, prompting her visit here. VITAL SIGNS: See below. NEW TEST RESULTS: See lipid Panel CURRENT MEDICATIONS: See below. MENTAL STATUS EXAMINATION: Patient is a 34 -year-old , Disabled, Domiciled, , female, who reports that she has been very depressed and anxious with suicidal ideation after a breakup with her boyfriend Speech: Is fluid, conversant, normal rate, tone and volume Language skills are intact Thought processes including: linear and goal oriented Thought content: denies depression and anxiety. Denies suicidal/homicidal ideation, planning or intent. Abstract reasoning, and computation: fair Description of associations: denies, none observed Description of abnormal or psychotic thoughts: denies, none observed. Judgment: fair Insight: fair Orientation: alert and oriented to person, place, time and situation Recent and remote memory: intact Attention span and concentration: good Language: expansive Fund of knowledge: average Mood: Euthymic Mood Affect: reactive DIAGNOSES: Adjustment disorder with mixed anxiety and depressed mood Nicotine Use Disorder ADHD ASSESSMENT: Patient states she is doing well, feels significantly better. Reports that she has decided to let things go. States that her ex-boyfriend was very dominant and narcissistic and that much her life was revolved around what he wanted. She states that she wants to control her life, wants to return to doing the things that made her happy and that she wants to concentrate on being with her daughters. MANAGEMENT PLAN: Discharge tomorrow TIME SPENT: 25 minutes. Vital Signs Vital Signs Date Time Temp Pulse Resp B/P (MAP) Pulse Ox O2 Delivery O2 Flow Rate FiO2 06/15/20 06:00 98.3 75 16 139/76 (97) 100 06/14/20 07:11 Room Air Laboratory Data 24H Labs Laboratory Tests 2 06/15/20 08:50: Triglycerides Level 148, Total Cholesterol 220H, LDL Cholesterol 140H, Non-HDL Cholesterol (LDL + VLDL) 170, Total HDL Cholesterol 50, Cholesterol/HDL Ratio 4.400 Current Medications Current Medications Medications (Trade) Dose Ordered Sig/Amish Route PRN Reason Start Time Stop Time Status Last Admin Dose Admin Acetaminophen (Tylenol Tab) 650 mg Q6HP PRN PO HEADACHE or DISCOMFORT 06/13/20 14:05 Al Hydrox/Mg Hydrox/Simethicone (Mylanta) 30 ml Q4HP PRN PO HEARTBURN/INDIGESTION 06/13/20 14:05 Bupropion HCl (Zyban, Wellbutrin Sr) 150 mg DAILY PO 06/14/20 15:00 06/15/20 08:37 Home Med (Med Rec Complete!) ASDIRECTED XX 06/13/20 14:35 06/13/20 14:36 DC Hydroxyzine HCl (Atarax) 50 mg Q6H PO 06/14/20 12:00 06/15/20 12:12 Magnesium Hydroxide (Milk Of Magnesia) 30 ml DAILYPRN PRN PO CONSTIPATION 06/13/20 14:05 Nicotine (Nicoderm Cq 14mg) 1 patch DAILY TD 06/14/20 09:00 06/15/20 08:37 Trazodone HCl (Desyrel) 50 mg QHSP PRN PO INSOMNIA 06/13/20 14:05 06/14/20 03:17 Allergies Coded Allergies: NSAIDS (Non-Steroidal Anti-Inflamma (Verified Allergy, Severe, anaphylaxis, 12/20/19) cephalexin (Verified Allergy, Severe, anaphalaxis, 12/20/19) AMBROCIO MUNSON NP Jun 15, 2020 12:29
[2020-06-15] MEDS ORDERED: hydrOXYzine 50 MG TAB PO PRN (18:00)
[2020-06-15 18:08] VITALS: BP 125/67
[2020-06-16 06:35] VITALS: BP 139/78
--- NOTE | 2020-06-16 07:32 | MHDSPDOC ---
[facility] Discharge Summary Discharge Summary DATE OF ADMISSION: Jun 13, 2020 at 14:03 DATE OF DISCHARGE: June 16, 2020 at 0715 DISCHARGE DIAGNOSES: Adjustment disorder with mixed anxiety and depressed mood Nicotine Use Disorder ADHD REASON FOR ADMISSION: Patient is a 34 -year-old , Disabled, Domiciled, , female, who reports that she has been very depressed and anxious with suicidal ideation after a breakup with her boyfriend two months ago. 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 she states that initially the relationship was a platonic relationship that developed into a genuine boyfriend/girlfriend relationship at [place]. She reports that he was cheating on her and she then terminated the relationship and she was receiving conflicting messages from friends and family to renew the relationship and stay away from him, PER ED REPORT: Patient reporting an increase in depressive sx over the last two months, including SI presently. "My anxiety and depression are at an all-time high right now." Patient reports relationship demise two months ago. She reports that this has been very difficult, although her ex is very narcissistic and there were significant relationship issues as a result. She says that she has been steadily feeling more depressed an anxious since the breakup, including serious thoughts of suicide. She states that she has been without any outpatient treatment since 2011 & has never been hospitalized, although was diagnosed with Bipolar D/O in the past. On several occasions she referenced being "manic" at times during the last month, although her description of her behavior & sx are more suggestive of depression & anxiety. She reports that she has never felt as strongly about ending her life as she has over the last couple of days, prompting her visit here. CONSULTANTS INVOLVED: See Medical H + P by Hospitalist TREATMENT AND PROGRESS ON THE UNIT: [facility] status he was afforded the following treatment modalities: 1) Individual Therapy 2) Group Therapy 3) Medication Management 4) Milieu Therapy 5) Safe Environment HOSPITAL COURSE: [facility] . She was started on Wellbutrin for complaints of expansive mood, irritation, depression, ADHD for which she is not taking medications for. She had reported that she was feeling exponentially better having the medication, having had individual and group therapies. She states that she had opportunity to meet peers who were in the same circumstances and that this helped to prioritize her needs. She stated that making friends while inpatient made her realize that she needed friends apart from her significant others. Patient is quite amenable to group therapies on the outside when this can come to fruition again. Based on patient's report that she has significantly improved and is not longer having self-harm thoughts. She has been communicating extensively with her estranged with whom she lives with and has a very good relationship with and will be supported on dis charge. DISCHARGE ASSESSMENT: In today's interview, patient is alert and oriented, pts dress is appropriate. Hygiene and grooming is well-kempt. Smiles on approach and is pleasant and engaged in the interview. Denies depression and anxiety. Denies suicidal and homicidal ideation, planning or intent. Denies and is not observed with christiano, psychotic symptoms of delusions, bizarre thinking, obsessions, paranoia, ruminations illogical thoughts, flight of ideas or having poor insight and judgement. Patient has normal mentation, declines further hospitalization on a voluntary status and meets criteria for discharge today. Patient encouraged to return to hospital if his symptoms worsen or change and encouraged to call unit if he/she/they needs to speak to provider for questions regarding medications or care. MENTAL STATUS EXAMINATION ON DISCHARGE: Patient is a 34 -year-old , Disabled, Domiciled, , female, who reports that she has been very depressed and anxious with suicidal ideation af ter a breakup with her boyfriend two months ago. Speech: Is fluid, conversant, normal rate, tone and volume Language skills are intact Thought processes including: linear and goal oriented Thought content: denies depression and anxiety. Denies suicidal/homicidal ideation, planning or intent. Abstract reasoning, and computation: fair Description of associations: denies, none observed Description of abnormal or psychotic thoughts: denies, none observed. Judgment: fair Insight: fair Orientation: alert and oriented to person, place, time and situation Recent and remote memory: intact Attention span and concentration: good Language: expansive Fund of knowledge: average Mood: Euthymic Mood Affect: reactive MEDICATIONS ON DISCHARGE: See Medication Reconciliation PLAN/FOLLOWUP ARRANGEMENTS: [facility] The amount of time spent in the coordination of care for this patient was approximately 25 minutes. ETOH/Disorder Med Rx ETOH/DRUG DISORDER RX: N/A (patient reports minimal use) Vital Signs/I&Os Vital Signs Date Time Temp Pulse Resp B/P (MAP) Pulse Ox O2 Delivery O2 Flow Rate FiO2 06/16/20 06:35 98.8 79 18 139/78 (98) 100 Room Air Laboratory Data Labs 24H Laboratory Tests 2 06/15/20 08:50: Triglycerides Level 148, Total Cholesterol 220H, LDL Cholesterol 140H, Non-HDL Cholesterol (LDL + VLDL) 170, Total HDL Cholesterol 50, Cholesterol/HDL Ratio 4.400 Medications Scheduled Bupropion HCl (Bupropion HCl Sr) 150 Mg Tab.er.12h, 150 MG PO DAILY for Mood, #7 Nicotine (Nicotine Patch) 14 Mg Patch.td24, 1 PATCH TD DAILY for Nicotine Withdrawal, #7 Allergies Coded Allergies: NSAIDS (Non-Steroidal Anti-Inflamma (Verified Allergy, Severe, anaphylaxis, 12/20/19) cephalexin (Verified Allergy, Severe, anaphalaxis, 12/20/19) AMBROCIO MUNSON NP Jun 16, 2020 07:19
[2020-06-16] MEDS: buPROPion **SR TABLET** (ZYBAN) 150MG PO SCH (08:26)
[2020-06-16] MEDS: NICOTINE 14 MG/24 HR TRANSDERMAL TD SCH (08:26)
== END 2020-06-16 10:56 | disposition home or self-care (01) | DRG 882 ==
LOC: M ED 08:19 → M ED INP 14:03 → M PSY 17:47
PROVIDERS: ADMIT Psychiatry & Neurology Psychiatry; ATTEND Psychiatry & Neurology Psychiatry
DX: F43.23 Adjustment disorder with mixed anxiety and depressed mood (principal); R45.851 Suicidal ideations; F17.200 Nicotine dependence, unspecified, uncomplicated; F43.10 Post-traumatic stress disorder, unspecified; Z88.6 Allergy status to analgesic agent; Z88.8 Allergy status to other drugs, medicaments and biological substances; M79.7 Fibromyalgia; G40.909 Epilepsy, unspecified, not intractable, without status epilepticus

== ENCOUNTER 2021-05-29 16:34 | Emergency (ER) | payer MEDICARE, MEDICAID ==
[~2021-05-29] VITALS: Ht 152.4 cm; Wt 139.2 kg
[~2021-05-29 16:34] MED LIST changes: +BUPR15TASR PO; +NICO14PA TD
[2021-05-29] MEDS ORDERED: EPINEPHrine INJ 1 MG/ML 1ML AMP IM STA (18:18)
[2021-05-29] MEDS ORDERED: dexameTHASONE 20MG/5ML VIAL (J1100 PER 1MG) IV ONE (18:20)
[2021-05-29 19:52] VITALS: BP 126/80
[2021-05-29] MEDS ORDERED: EPIP0.3I2 IM (20:18)
== END 2021-05-29 20:30 | disposition home or self-care (01) ==
LOC: M ED 16:34
DX: T78.40XA Allergy, unspecified, initial encounter (principal); Y92.9 Unspecified place or not applicable; Y93.9 Activity, unspecified; Z91.013 Allergy to seafood; Z98.84 Bariatric surgery status; Z79.899 Other long term (current) drug therapy; Z88.6 Allergy status to analgesic agent; Z88.1 Allergy status to other antibiotic agents
CPT/HCPCS: 93041; 94760; 96372; 96374; 99284; J0171; J1100